=== PATIENT | male | born 1945 | race Caucasian/White ===

== ENCOUNTER 2017-04-05 06:18 | Day surgery (SDC) | payer MEDICARE ==
[~2017-04-05 06:18] MED LIST: ACYCLOVIR800 MG PO; AMLODIPINE10 MG PO; ASPIRIN 325MG325 MG PO; FERROUS SULFAT325 M2 PO; GLIPIZIDE10 MG PO; INVOKANA100 MG PO; JANUVIA50 MG PO; LASIX20 MG PO; LEVAQUIN 750 M750 MG PO; LISINOPRIL40 MG PO; MELOXICAM7.5 MG PO; METAMUCIL(SF)1 EACH PO; METFORMIN1000 MG PO; OMEPRAZOLE MAGN20 MG PO; OMEPRAZOLE20 MG PO; PIOGLITAZONE HC30 MG PO; PLAVIX 75MG TAB75 MG PO; TIZANIDINE HCL2 MG PO; VESICARE10 MG PO; ZOFRAN ODT4 MG PO
[2017-04-05 09:49] VITALS: BP 167/90
== END 2017-04-05 09:47 | disposition home or self-care (01) ==
LOC: SDC 06:18
PROVIDERS: Ophthalmology
PROC: 08RJ3JZ Replacement of Right Lens with Synthetic Substitute, Percutaneous Approach (ICD-10-PCS; principal; 2017-04-05 07:30)
DX: H26.9 Unspecified cataract (principal); E11.9 Type 2 diabetes mellitus without complications
CPT/HCPCS: V2632